=== PATIENT | male | born 1975 | race Caucasian/White ===

== ENCOUNTER 2016-03-17 00:46 | Emergency (ER) | payer OTHER ==
[2016-03-17 02:12] VITALS: BP 130/75; PULSE 79; TEMP 97.1; BMI 25.0
[2016-03-17] MEDS ORDERED: IBUPROFEN 400 MG TABLET (FP) PO ONE (03:18)
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
== END 2016-03-17 03:48 | disposition home or self-care (01) ==
LOC: JER 00:46
DX: M25.512 Pain in left shoulder (principal); X50.0XXA Overexertion from strenuous movement or load, initial encounter; X02.8XXA Other exposure to controlled fire in building or structure, initial encounter; Y93.89 Activity, other specified; Y92.89 Other specified places as the place of occurrence of the external cause; Y99.0 Civilian activity done for income or pay
CPT/HCPCS: 99281-25

== ENCOUNTER 2017-11-14 09:55 | Emergency (ER) | payer OTHER, BC ==
--- NOTE | 2017-11-14 10:11 | PDOC ---
Attending Attestation - Resident Resident Name: AdrianClovis workman - ED Attending Attestation I have performed the following: I have examined & evaluated the patient, The case was reviewed & discussed with the resident, I agree w/resident's findings & plan, Exceptions are as noted - HPI HPI: 11/14/17 17:09 Agree with Residents HPI - Physicial Exam PE: 11/14/17 17:09 Agree with Residents PE - Medical Decision Making 11/14/17 17:59 Fall onto outstretched hand tenderness to the distal radius. No fracture noted on x-ray. Patient placed in wrist splint given tenderness recommended to follow up with orthopedics this week. Findings, need for follow-up and strict return instructions discussed patient.
[2017-11-14 10:12] VITALS: BP 133/91; PULSE 73; TEMP 98.4; BMI 25.0
--- NOTE | 2017-11-14 11:11 | PDOC ---
History of Present Illness - General Chief Complaint: Injury Stated Complaint: INJURED RIGHT HAND AT WORK EARLIER TODAY Time Seen by Provider: 11/14/17 09:59 History Source: Patient Exam Limitations: No Limitations - History of Present Illness Initial Comments: 11/14/17 11:06 The patient is a 42M with no PMH who presents for R wrist pain. The patient states that he fell on his outstretched R hand yesterday while at work. 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 Since then, he's had pain in his L wrist which causes limits in his strength. He denies any numbness or tingling in his hand. He denies any other injuries. Past History - Past Medical History Allergies/Adverse Reactions: Allergies Allergy/AdvReac Type Severity Reaction Status Date / Time No Known Allergies Allergy Verified 11/14/17 09:57 Home Medications: Ambulatory Orders NK [No Known Home Medication] 11/14/17 COPD: No Other medical history: DENIES - Immunization History Immunization Up to Date: No - Suicide/Smoking/Psychosocial Hx Smoking Status: No Smoking History: Never smoked Have you smoked in the past 12 months: No Number of Cigarettes Smoked Daily: 0 If you are a former smoker, when did you quit?: 25 YEARS AGO Cigars Per Day: 0 Information on smoking cessation initiated: No Hx Alcohol Use: Yes (SOCIAL) Drug/Substance Use Hx: No Substance Use Type: Alcohol Review of Systems - Review of Systems Able to Perform ROS?: Yes Comments:: 11/14/17 11:07 GENERAL/CONSTITUTIONAL: No weakness. HEAD, EYES, EARS, NOSE AND THROAT: No change in vision. No ear pain or discharge. No sore throat. MUSCULOSKELETAL: Positive for R wrist pain. No joint or muscle swelling or pain. No neck or back pain. SKIN: No rash or lesions. NEUROLOGIC: No headache, numbness, tingling, focal weakness, loss of consciousness, or change in strength/sensation. Is the patient limited Egyptian proficient: No *Physical Exam - Vital Signs Last Vital Signs Temp Pulse Resp BP Pulse Ox 98.4 F 73 16 133/91 98 11/14/17 09:57 11/14/17 09:57 11/14/17 09:57 11/14/17 09:57 11/14/17 09:57 - Physical Exam Comments: 11/14/17 11:08 GENERAL: Well developed, well nourished. Awake and alert. No acute distress. HEENT: Normocephalic, atraumatic. Hearing grossly normal. Moist mucous membranes. PERRLA, EOMI. No conjunctival pallor. Sclera are non-icteric. MUSCULOSKELETAL: TTP over scaphoid/lunate on palmar surface of R hand. No snuff box tenderness. Otherwise, normal range of motion at all joints with no bony deformities or tenderness. EXTREMITIES: No cyanosis. No clubbing. No edema. No calf tenderness or swelling. SKIN: Warm and dry. Normal capillary refill. No rashes. No jaundice. NEUROLOGICAL: Alert, awake, appropriate. Cranial nerves 2-12 grossly intact. Normal speech. Gait is normal without ataxia. PSYCHIATRIC: Cooperative. Good eye contact. Appropriate mood and affect. ED Treatment Course - RADIOLOGY Radiology Studies Ordered: Category Date Time Status WRIST W/HAND-RIGHT* [RAD] Stat Radiology 11/14/17 10:02 Taken Medical Decision Making - Medical Decision Making 11/14/17 11:09 The patient is a 42M with no PMH who presents to the ER with complaints of R wrist pain. Preliminary read of XR is negative for acute pathology. Concern for scaphoid fracture. Will splint with hand f/u. *DC/Admit/Observation/Transfer Diagnosis at time of Disposition: Wrist injury Qualifiers: Encounter type: initial encounter Laterality: right Qualified Code(s): S69.91XA - Unspecified injury of right wrist, hand and finger(s), initial encounter - Discharge Dispostion Disposition: HOME Condition at time of disposition: Stable Decision to Admit order: No - Referrals Referrals: Yazan Marquez MD [Staff Physician] - - Patient Instructions Printed Discharge Instructions: Wrist Fracture Additional Instructions: You were seen for pain in your wrist after falling. Even though your X-rays were normal, an underlying fracture could still exist. Please keep the splint on unless you're showering, ice it, limit activities with that hand, and take tylenol/motrin as needed for pain. Please follow up with Dr. Marquez in 3-5 days. Please return to the ER if you develop worsening pain, numbness, tingling, or weakness in your hand. - Post Discharge Activity
== END 2017-11-14 11:34 | disposition home or self-care (01) ==
LOC: FER 09:55
DX: S69.91XA Unspecified injury of right wrist, hand and finger(s), initial encounter (principal); W01.0XXA Fall on same level from slipping, tripping and stumbling without subsequent striking against object, initial encounter; Y93.89 Activity, other specified; Y92.89 Other specified places as the place of occurrence of the external cause; Y99.0 Civilian activity done for income or pay; Z87.891 Personal history of nicotine dependence
CPT/HCPCS: 73110-TC-RT-FY; 73130-TC-RT-FY; 99281-25